=== PATIENT | male | born 1985 | race Two or more races ===

== ENCOUNTER 2019-10-30 15:59 | Emergency (ER) | payer OTHER ==
[~2019-10-30] VITALS: Ht 185.4 cm; Wt 104.3 kg
--- NOTE | 2019-10-30 17:03 | NUR ---
Dr Quach at the bedside for MSE.
[2019-10-30] MEDS ORDERED: ONDANSETRON 4 MG/2 ML VIAL ONE (17:14)
[2019-10-30 17:15] LABS: BASOPHILS % (AUTO) 0.4 % (0.0-2.0); EOSINOPHILS # (AUTO) 0.1 K/uL (0.0-0.7); EOSINOPHILS % (AUTO) 1.4 % (0.0-7.0); HEMATOCRIT 44.2 % (36.7-47.1); HEMOGLOBIN 14.9 g/dL (12.5-16.3); LYMPHOCYTES # (AUTO) 2.1 K/uL (20.0-40.0); LYMPHOCYTES % (AUTO) 39.8 % (20.5-51.5); MEAN CORPUSCULAR HEMOGLOBIN 31.4 uug (23.8-33.4); MEAN CORPUSCULAR HGB CONC 34 g/dL (32.5-36.3); MEAN CORPUSCULAR VOLUME 93.3 fL (73.0-96.2); MONOCYTES # (AUTO) 0.4 K/uL (2.0-10.0); MONOCYTES % (AUTO) 7.3 % (0.0-11.0); NEUTROPHILS # (AUTO) 2.7 K/uL (1.8-8.9); NEUTROPHILS % (AUTO) 51.1 % (38.5-71.5); PLATELET COUNT (AUTO) 320 K/uL (152-348); RED BLOOD CELL COUNT(AUTO) 4.74 MIL/uL (4.06-5.63); WHITE BLOOD COUNT (AUTO) 5.3 K/uL (3.6-10.2)
[2019-10-30] MEDS ORDERED: ONDANSETRON 4 MG/2 ML VIAL IV ONE ×2 (17:15)
[2019-10-30] MEDS ORDERED: IV NORMAL SALINE 1000 ML BAG IV ONE (17:15)
[2019-10-30 17:26] LABS: POTASSIUM 3.7 mmol/L (3.5-5.1)
[2019-10-30 17:31] LABS: BILIRUBIN,DIRECT 0.1 mg/dL (0.0-0.2); BILIRUBIN,TOTAL 0.7 mg/dL (0.2-1.0); TOTAL PROTEIN, SERUM 7.9 g/dL (6.4-8.2)
[2019-10-30] MEDS ORDERED: FAMOTIDINE. 20 MG/2 ML VIAL IV ONE ×2 (17:57→18:00)
[2019-10-30] MEDS ORDERED: LIDOCAINE VISCUS 2% 15 ML UDC ONE (17:57)
[2019-10-30] MEDS ORDERED: MAG HYDROX/AL HYDROX/SIMETH 30 ML LIQUID UDC ONE (17:57)
[2019-10-30] MEDS ORDERED: MAG HYDROX/AL HYDROX/SIMETH 30 ML LIQUID UDC PO ONE (18:00)
[2019-10-30] MEDS ORDERED: LIDOCAINE VISCUS 2% 15 ML UDC MM ONE (18:00)
[2019-10-30 18:12] LABS: *BILIRUBIN,URIN NEGATIVE (NEGATIVE); *BLOOD, URINE NEGATIVE (NEGATIVE); *CLARITY,URINE CLEAR (CLEAR); *COLOR,URINE LIGHT YELLOW (YELLOW); *KETONES,URINE NEGATIVE (NEGATIVE); *UROBILINOGEN,URINE 0.2 E.U./dl (NORMAL); LEUKOCYTE ESTERASE ,URINE NEGATIVE (NEGATIVE); NITRITE, URINE NEGATIVE (NEGATIVE); PH,URINE 6.5 (5.0-8.0); UGLUCOSE NEGATIVE (NEGATIVE)
--- NOTE | 2019-10-30 18:20 | NUR ---
Patient is resting comfortably in bed with eyes closed.
[2019-10-30 18:37] VITALS: BP 122/79
--- NOTE | 2019-10-30 18:42 | NUR ---
Patient discharged to home in stable conditon. Written and verbal after care instructions given. Patient verbalizes understanding of instructions. 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
== END 2019-10-30 18:45 | disposition home or self-care (01) ==
LOC: ER 15:59
DX: K29.20 Alcoholic gastritis without bleeding (principal); F17.210 Nicotine dependence, cigarettes, uncomplicated; F10.20 Alcohol dependence, uncomplicated; Z60.2 Problems related to living alone; Y90.9 Presence of alcohol in blood, level not specified
CPT/HCPCS: 36415; 71045; 80048; 80076; 81001; 83690; 84484; 85025; 93005; 96361; 96374; 96375; 99285; J2405; J3490; 70030-TC; A4663; J7030

== ENCOUNTER 2019-10-30 21:31 | Emergency (ER) | payer OTHER ==
[~2019-10-30] VITALS: Ht 188 cm; Wt 108.9 kg
[2019-10-30] MEDS ORDERED: HALOPERIDOL LACTATE 5 MG/1 ML VIAL IM ONE (21:45)
[2019-10-30] MEDS ORDERED: IV NORMAL SALINE 1000 ML BAG IV ONE (21:45)
--- NOTE | 2019-10-30 21:45 | NUR ---
Patient BIB [id number]. Per [facility] patient was seen sleeping on the floor and hard to arouse in the field. Patient arrived in the ED anxious, agitated, and selectively answering questions. Patient breathing even and unlabored. No cough or SOB noted. denies any / GI distress. Patient speech is clear and able to make needs known / follow simple commands.
[2019-10-30] MEDS ORDERED: HALOPERIDOL LACTATE 5 MG/1 ML VIAL ONE (21:50)
[2019-10-30] MEDS ORDERED: IV NORMAL SALINE 250 ML IV ONE (21:52)
[2019-10-30] MEDS ORDERED: SWABABLE VALVE TRANSFER SET EA MC ONE (21:52)
[2019-10-30] MEDS ORDERED: IOHEXOL 300MG/ML 100 ML INFUS..BTL ONE (21:52)
[2019-10-30] MEDS ORDERED: METOCLOPRAMIDE HCL 10 MG/2 ML VIAL IM ONE (22:00)
[2019-10-30] MEDS ORDERED: diphenhydrAMINE 50 MG/1 ML VIAL IM ONE (22:00)
--- NOTE | 2019-10-30 22:00 | NUR ---
Patient A&Ox3. able to conversate and answer simple questions. Patient states he had "some alcohol" [employer]. Patient unable to recall what he drank
[2019-10-30 22:06] LABS: BASOPHILS # (AUTO) 0.1 K/uL (0.0-8.0); BASOPHILS % (AUTO) 2.5 % (0.0-2.0); EOSINOPHILS # (AUTO) 0.1 K/uL (0.0-0.7); EOSINOPHILS % (AUTO) 1.4 % (0.0-7.0); HEMATOCRIT 46.4 % (36.7-47.1); HEMOGLOBIN 15.7 g/dL (12.5-16.3); LYMPHOCYTES # (AUTO) 2.4 K/uL (20.0-40.0); LYMPHOCYTES % (AUTO) 57.8 % (20.5-51.5); MEAN CORPUSCULAR HEMOGLOBIN 31.4 uug (23.8-33.4); MEAN CORPUSCULAR HGB CONC 34 g/dL (32.5-36.3); MONOCYTES # (AUTO) 0.4 K/uL (2.0-10.0); MONOCYTES % (AUTO) 8.5 % (0.0-11.0); NEUTROPHILS # (AUTO) 1.3 K/uL (1.8-8.9); NEUTROPHILS % (AUTO) 29.8 % (38.5-71.5); PLATELET COUNT (AUTO) 321 K/uL (152-348); RED BLOOD CELL COUNT(AUTO) 4.98 MIL/uL (4.06-5.63); WHITE BLOOD COUNT (AUTO) 4.2 K/uL (3.6-10.2)
[2019-10-30 22:25] LABS: ALANINE AMINOTRANSFERASE 45 U/L (16-63); ALKALINE PHOSPHATASE 82 U/L (50-136); ASPARTATE AMINOTRANSFERASE 46 U/L (15-37); BILIRUBIN,DIRECT 0.2 mg/dL (0.0-0.2); BILIRUBIN,TOTAL 0.5 mg/dL (0.2-1.0); CARBON DIOXIDE 26 mmol/L (21-32); CHLORIDE 101 mmol/L (98-107); CREATININE 1.1 mg/dL (0.6-1.3); GLUCOSE 126 mg/dL (74-106); POTASSIUM 3.8 mmol/L (3.5-5.1); TOTAL PROTEIN, SERUM 8.3 g/dL (6.4-8.2); UREA NITROGEN, BLOOD 4 mg/dL (7-18)
[2019-10-30 22:26] LABS: ACETAMINOPHEN < 2.0 ug/mL (10-30)
[2019-10-30 22:32] LABS: THYROID STIMULATING HORMONE 0.207 mIU/mL (0.358-3.740)
[2019-10-30 22:39] LABS: ETHANOL 481 MG/DL (0-0)
--- NOTE | 2019-10-30 22:45 | NUR ---
Patient taken to CT scan in stable condition
[2019-10-30 23:14] LABS: BAND % (MANUAL) 3 % (0-10); LYMPHOCYTES % (MANUAL) 57 % (20-40); MONOCYTES % (MANUAL) 9 % (2-10); NEUTROPHILS % (MANUAL) 25 % (42-75)
--- NOTE | 2019-10-30 23:14 | NUR ---
Patient back from CT scan
--- NOTE | 2019-10-30 23:54 | NUR ---
dad phone number: [phone] grandfather: [phone]
--- NOTE | 2019-10-31 00:37 | NUR ---
Called [facility] for panel placement
--- NOTE | 2019-10-31 00:45 | NUR ---
Dr. Jordan on the phone with Giovanna Briggs
[2019-10-31] MEDS ORDERED: IV NS 1000 ML 1,000 ML IV ONE ×2 (01:00→02:15)
--- NOTE | 2019-10-31 01:00 | NUR ---
Patient in bed sleeping but easily arousable. Breathing even and unlabored. Denies any pain or discomfort at this time. NAD noted
[2019-10-31] MEDS ORDERED: FOLIC ACID 5 MG/ML VIAL IV ONE ×2 (02:15→02:21)
[2019-10-31] MEDS ORDERED: THIAMINE HCL 200 MG/2 ML VIAL IV ONE (02:15)
[2019-10-31] MEDS ORDERED: THIAMINE HCL 200 MG/2 ML VIAL ONE (02:20)
[2019-10-31] MEDS ORDERED: MAGNESIUM SULFATE/D5W 200 ML ONE (02:20)
[2019-10-31] MEDS: MAGNESIUM SULFATE/D5W 100 ML IV SCH (02:33)
--- NOTE | 2019-10-31 03:00 | NUR ---
Offered patient food and beverage, patient declined and stated "I'm fine i just need some rest". Denies any pain or discomfort. NAD noted
--- NOTE | 2019-10-31 04:36 | NUR ---
Patient AA&Ox4. Offered fluids, patient tolerated well. Breathing even and unlabored. NAD noted
--- NOTE | 2019-10-31 05:19 | NUR ---
Patient ambulated with steady gait to rest room. Patient able to urinate without difficulty. Denies any pain or discomfort at this time. NAD noted
--- NOTE | 2019-10-31 06:00 | NUR ---
Attempted to call father's phone number, unable to reach / leave message. Patient made aware, no further concerns at this time
--- NOTE | 2019-10-31 07:05 | NUR ---
IV removed. Catheter intact and site benign. Pressure and 4x4 gauze applied to site. No bleeding noted. Patient discharged to home in stable conditon. Written and verbal after care instructions given. Patient verbalizes understanding of instructions. Patient ambulating with steady gait. A&O x4. Denies any pain or discomfort. NAD noted
[2019-10-31 07:06] VITALS: BP 136/84
== END 2019-10-31 07:05 | disposition home or self-care (01) ==
LOC: ER 21:32
DX: F10.229 Alcohol dependence with intoxication, unspecified (principal); F17.210 Nicotine dependence, cigarettes, uncomplicated; E87.2 Acidosis; K57.90 Diverticulosis of intestine, part unspecified, without perforation or abscess without bleeding; Y90.8 Blood alcohol level of 240 mg/100 ml or more; R00.0 Tachycardia, unspecified; Z86.59 Personal history of other mental and behavioral disorders; R74.0 Nonspecific elevation of levels of transaminase and lactic acid dehydrogenase [LDH]; R45.1 Restlessness and agitation; R40.0 Somnolence
CPT/HCPCS: 36415 ×2; 70450; 74177; 80048 ×2; 80076; 80307 ×2; 82140; 82962; 83605 ×3; 84443; 84484; 85025; 85730; 93005; 99285; G0480; G0481; J1200; J1630; J2765; J3411; J3475; J3490; Q9967; 70030-TC; A4663; J7030; J7050